=== PATIENT | male | born 1945 | race Two or more races ===

== ENCOUNTER → 2019-10-27 | Outpatient (CLI) | payer OTHER ==
[~2019-10-27] MED LIST: AMARYL; ASA81 MG; AVALIDE 300-12.1 TAB; CIPRO500 MG PO; COUMADIN7.5 MG; GLIMEPIRIDE2 MG PO; GLUCOPHAGE XR500 MG; LANOXIN0.25 MG; MICARDIS80 MG PO; NORVASC10 MG; TRAMADOL HCL50 MG PO; TRIPLE ANTIBIOT15 GM TP; WELLBUTRIN100 MG PO; [UNRECOGNIZED DRUG - MIXTURE]
== END | disposition home or self-care (01) ==
LOC: RAD 08:30
DX: I10 Essential (primary) hypertension (principal); J44.9 Chronic obstructive pulmonary disease, unspecified

== ENCOUNTER 2022-06-15 07:26 | Outpatient (CLI) | payer OTHER | END 2022-06-15 07:31 | disposition home or self-care (01) | LOC: MRI 07:26 | PROVIDERS: ATTEND Internal Medicine Gastroenterology | DX: K74.60 Unspecified cirrhosis of liver (principal); J44.9 Chronic obstructive pulmonary disease, unspecified; I51.7 Cardiomegaly; E11.9 Type 2 diabetes mellitus without complications; D64.9 Anemia, unspecified | CPT/HCPCS: 72197; 74183; 76700; Q9965; 74181 ==

== ENCOUNTER 2022-08-03 07:19 | Emergency (ER) | payer OTHER ==
[~2022-08-03] VITALS: Ht 170.2 cm; Wt 68.0 kg
[2022-08-03] MEDS ORDERED: TOPROL XL25 M1 PO (07:42)
[2022-08-03] MEDS ORDERED: SYNTHROID88 MCG PO (07:43)
== END 2022-08-03 14:12 | disposition home or self-care (01) ==
LOC: ER 07:19
DX: S89.91XA Unspecified injury of right lower leg, initial encounter (principal); W01.0XXA Fall on same level from slipping, tripping and stumbling without subsequent striking against object, initial encounter; Y93.9 Activity, unspecified; Y92.017 Garden or yard in single-family (private) house as the place of occurrence of the external cause; C61 Malignant neoplasm of prostate; S99.911A Unspecified injury of right ankle, initial encounter; Z95.2 Presence of prosthetic heart valve

== ENCOUNTER 2023-06-09 07:11 | Outpatient (CLI) | payer OTHER ==
[~2023-06-09 07:11] MED LIST changes: +SYNTHROID88 MCG PO; +TOPROL XL25 M1 PO
== END 2023-06-09 07:16 | disposition home or self-care (01) ==
LOC: RAD 07:11
PROVIDERS: ATTEND Internal Medicine Gastroenterology
DX: R05.8 Other specified cough (principal); K21.9 Gastro-esophageal reflux disease without esophagitis; K30 Functional dyspepsia; R13.10 Dysphagia, unspecified

== ENCOUNTER 2023-06-16 09:24 | Outpatient (CLI) | payer OTHER | END 2023-06-16 09:26 | disposition home or self-care (01) | LOC: TOM 09:24 | PROVIDERS: ATTEND Internal Medicine Gastroenterology | DX: K74.60 Unspecified cirrhosis of liver (principal) | CPT/HCPCS: 74177; Q9965 ==